=== PATIENT | male | born 1985 | race Caucasian/White ===

== ENCOUNTER 2024-12-29 03:19 | Emergency (ER) | payer MEDICAID ==
[~2024-12-29] VITALS: Ht 185.4 cm; Wt 99.8 kg
[2024-12-29 03:44] LABS: IMMATURE GRANULOCYTE ABSOLUTE 0.05 K/uL (0-1); NUCLEATED RED BLOOD CELLS 0.0 % (0.0-0.19); PLATELET COUNT (AUTO) 298 K/uL (130-400); RED BLOOD CELL COUNT(AUTO) 5.17 MIL/uL (4.50-6.20); RED CELL DISTRIBUTION WIDTH 12.9 % (11.0-15.5); WHITE BLOOD COUNT (AUTO) 9.0 K/uL (4.8-10.8)
[2024-12-29 03:58] LABS: CREATINE KINASE, TOTAL 219.0 U/L (21-232); CREATININE 0.9 mg/dL (0.5-1.3); GLOMERULAR FILTR. RATE CALC 113.0 mL/min (>90); GLUCOSE,RANDOM 109.0 mg/dL (70-105); SODIUM SERUM 139.0 mmol/L (136-145); UREA NITROGEN, BLOOD 22.0 mg/dL (7-18)
--- NOTE | 2024-12-29 04:14 | ERN ---
ED Note History of Present Illness Stated Complaint: CHEST PAIN Chief Complaint: Chest Pain Time Seen by MD: 03:22 Dictation: Narinder is a 39-year-old male who was diagnosed with schizophrenia and anxiety 16 years ago when he was born and raised in [place]. Eventually moved to [facility] and lived there however as it was extremely cold with snow he moved down to [place] and eventually landed in [place]. He stated that 2 weeks ago he was admitted to a mental health hospital and he was given Seroquel which really helped him with his insomnia however he did not get a prescription for it. Also gave him Vraylar and asked him to roll picker the prescription. He has been living in homeless shelters and stated that a few hours ago around 1:30 a.m. he began experiencing chest pain and had difficulty catching his breath. He stated that this has been off and on it would come and go as he described it. Patient received aspirin and nitro prior to coming to the ER by EMS He had a similar episode before when he was admitted as unstable angina and he also had a left heart catheterization done. He does not recall getting any stents placed. No diaphoresis presyncopal symptoms. He stated that he suffers from severe insomnia and can not sleep without any medications. Temperature 98 pulse 76 respirations 18 blood pressure 112/75 with a pulse oximetry of 97% on room air He has a known history of hypertension, angina, schizophrenia and anxiety Allergies: Coded Allergies: No Known Drug Allergies (Unverified Allergy, Unknown, 12/29/24) Past Medical History Past Medical History: Angina, Anxiety, Heart Disease, Hypertension, Schizophrenia Surgical History: None PSYCH History: anxiety, schizophrenia Social History: Smokers, ETOH RN Note Reviewed/Agreed w/PFSH: Yes Review of System Dictation Constitutional: Negative for fever,chills, and weight loss Eyes: Negative for injury, pain,redness, and discharge ENT: Negative for injury,pain or swelling Cardiovascular: Positive for chest pain, denied palpitations, and edema Respiratory: Negative for shortness of breath, cough, and wheezing, Abdomen/GI: Negative for abdominal pain, nausea, vomiting, diarrhea, and constipation Back: Negative for injury and pain : Negative for injury, bleeding and discharge MS/Extremity: Negative for injury and deformity Skin: Negative for rash, and discoloration Neuro: Negative for headache, weakness, numbness, tingling, and seizure Psych: Negative for suicide ideation, homicidal ideation, and hallucinations positive for severe insomnia Initial Vital Sign VS Vital Signs Date Time Temp Pulse Resp B/P (MAP) Pulse Ox O2 Delivery O2 Flow Rate FiO2 12/29/24 03:38 98.1 76 18 112/75 97 Room Air* 0 21 Physical Exam Dictation General: awake, alert, NAD obese male very pleasant and interactive Head/Face: Normocephalic, atraumatic Eyes: PERRL, EOMI, vision at baseline ENT: oral cavity clear, TMs clear, no signs of infection Neck: Trachea midline, supple, no nuchal rigidity Cardiovascular: RRR, normal S1/S2, No MRGs, no JVD, mild chest wall tenderness Respiratory: CTAB, no respiratory distress, No rales or wheezes Abdomen: Soft, non-tender, non-distended, normal bowel sounds, no guarding or rebound. Skin: Warm, dry, normal turgor, no rash MS/Extremity: Pulses equal, no cyanosis, neurovascular intact, FROM Neuro: COAx4, GCS 15, strength 5/5, CN 2-12 intact, normal cerebellar exam, normal gait, Psych: Normal behavior, mood, and affect normal Extremities-trace edema without any palpable cords, Homans sign is negative Results (Laboratory/Radiology) Laboratory/Radiology Laboratory Tests Test 12/29/24 03:36 12/29/24 04:30 White Blood Count 9.0 K/uL (4.8-10.8) Red Blood Count 5.17 MIL/uL (4.50-6.20) Hemoglobin 15.7 g/dL (14.0-18.0) Hematocrit 45.7 % (42-54) Mean Corpuscular Volume 88.4 fL (79-99) Mean Corpuscular Hemoglobin 30.4 pg (27.0-33.0) Mean Corpuscular Hemoglobin Concent 34.4 g/dL (32.0-36.0) Red Cell Distribution Width 12.9 % (11.0-15.5) Platelet Count 298 K/uL (130-400) Mean Platelet Volume 9.3 fL (7.5-10.5) Immature Granulocyte % (Auto) 0.6 % (0-1) Neutrophils (%) (Auto) 57.1 % (40.0-77.0) Lymphocytes (%) (Auto) 31.5 % (21.0-51.0) Monocytes (%) (Auto) 9.1 % (3.0-13.0) Eosinophils (%) (Auto) 1.3 % (0.0-8.0) Basophils (%) (Auto) 0.4 % (0.0-5.0) Neutrophils # (Auto) 5.1 K/uL (1.8-7.7) Lymphocytes # (Auto) 2.8 K/uL (1.0-4.8) Monocytes # (Auto) 0.8 K/uL (0.1-1.0) Eosinophils # (Auto) 0.12 K/uL (0.00-0.70) Basophils # (Auto) 0.04 K/uL (0.00-0.20) Absolute Immature Granulocyte (auto 0.05 K/uL (0-1) Nucleated Red Blood Cells 0.0 % (0.0-0.19) Sodium Level 139 mmol/L (136-145) Potassium Level 4.0 mmol/L (3.5-5.1) Chloride Level 105 mmol/L (101-111) Carbon Dioxide Level 26 mmol/L (21-32) Blood Urea Nitrogen 22 mg/dL (7-18) H Creatinine 0.9 mg/dL (0.5-1.3) Glomerular Filtration Rate Calc 113 mL/min (>90) Random Glucose 109 mg/dL (70-105) H Total Calcium 8.8 mg/dL (8.5-10.1) Total Creatine Kinase 219 U/L (21-232) Troponin I High Sensitivity 5 ng/L (4-75) Urine Color YELLOW (YELLOW) Urine Appearance CLEAR (CLEAR) Urine pH 5.5 (5.0-8.0) Urine Specific [place] 1.031 (1.001-1.031) Urine Protein 20 mg/dL (NEGATIVE) H Urine Glucose (UA) NEGATIVE mg/dL (NEGATIVE) Urine Ketones NEGATIVE mg/dL (NEGATIVE) Urine Occult Blood NEGATIVE (NEGATIVE) Urine Nitrate NEGATIVE (NEGATIVE) Urine Bilirubin NEGATIVE mg/dL (NEGATIVE) Urine Urobilinogen 0.2 mg/dL (0.2-1.0) Urine Leukocyte Esterase NEGATIVE Cade/uL Urine RBC 2-5 /HPF (0-1) H Urine WBC None /HPF (0-1) Urine Squamous Epithelial Cells RARE /HPF (0-2) Urine Bacteria None /HPF (None Seen) Urine Opiates Screen NEGATIVE (NEGATIVE) Urine Barbiturates Screen NEGATIVE (NEGATIVE) Urine Phencyclidine Screen NEGATIVE (NEGATIVE) Urine Amphetamines Screen NEGATIVE (NEGATIVE) Urine Benzodiazepines Screen NEGATIVE (NEGATIVE) Urine Cocaine Screen NEGATIVE (NEGATIVE) Urine Marijuana (THC) Screen NEGATIVE (NEGATIVE) Labs Reviewed?: Yes EKG Comment: Twelve lead EKG done on 12/29/2024 at 3:30 a.m. showed a heart rate of 68, [place] interval 130, QRS 96, QT/QTC 382/407 Impression normal sinus rhythm with no obvious acute ST-T elevations but probably screen repolarization changes noted EKG rhythm strip shows a normal sinus rhythm with no acute STT wave changes noted. Interpreted by ER MD Dr. Iyer ED Course ED Course Orders Procedure Category Date Status Time Vital Signs Per CPOE 12/29/24 Transmitted Routine 03:22 Chest 1vw RAD 12/29/24 Resulted 03:22 12 Lead Ekg Tracing- EKG 12/29/24 Complete Technical 03:22 Oxygen By Nc/Pulse Ox CPOE 12/29/24 Transmitted 03:22 Maintain Iv CPOE 12/29/24 Transmitted 03:22 Iv Insertion CPOE 12/29/24 Transmitted 03:22 Cardiac Monitoring CPOE 12/29/24 Transmitted 03:22 Pulse Oximetry With CPOE 12/29/24 Transmitted Vs And Prn 03:22 Cbc With Differential LAB 12/29/24 Complete 03:22 Activity: Br W/Brp CPOE 12/29/24 Transmitted With Assist 03:22 Creatine Kinase, Total LAB 12/29/24 Complete 03:22 Troponin I High LAB 12/29/24 Complete Sensitivity 03:22 Urinalysis Profile LAB 12/29/24 Complete 03:22 Basic Metabolic Panel LAB 12/29/24 Complete 03:22 Drug Screen Urine LAB 12/29/24 Complete 03:22 Ketorolac PHA 12/29/24 Complete Tromethamine 30mg/Ml 04:30 Current Medications Medications (Trade) Dose Ordered Sig/Augie Route PRN Reason Start Time Stop Time Status Last Admin Dose Admin Ketorolac Tromethamine (toRADol) 30 mg ONCE ONCE IVP 12/29/24 04:30 12/29/24 04:31 DC 12/29/24 04:36 Vital Signs Date Time Temp Pulse Resp B/P (MAP) Pulse Ox O2 Delivery O2 Flow Rate FiO2 12/29/24 04:48 98.1 70 18 99/47 97 Room Air* 0 21 12/29/24 03:38 98.1 76 18 112/75 97 Room Air* 0 21 We will perform diagnostic labs, advanced imaging and administer medications according to the patient's complaint. Once the results are available, will review and personally interpreted the labs to rule out any acute life- threatening emergency the trach require immediate intervention and treatment. I will then re-evaluate the patient after treatment and diagnostic exams have return to determine whether the patient requires any further testing, can safely be discharged home or need further admission to hospital for additional treatment and evaluation. HEART Score Response (Comments) Value History: Low suspicion (0) 0 EKG: Normal 0 Age: < 45yrs (0) 0 Risk Factors: 1-2 risk factors (+1) 1 Initial Troponin: Normal limit (0) 0 HEART Score Risk: Low Risk for MACE (1-3) Total 1 Medical Decision Making MDM Differential diagnosis: Esophagitis, gastroesophageal reflux disease, hiatal hernia, gastritis, pericarditis, costochondritis, pleurisy, angina, chest wall pain Narinder is a 39-year-old male who was diagnosed with schizophrenia and anxiety 16 years ago when he was born and raised in [place]. Eventually moved to [place] and lived there however as it was extremely cold with snow he moved down to [place] and eventually landed in [place]. He stated that 2 weeks ago he was admitted to a mental health hospital and he was given Seroquel which really helped him with his insomnia however he did not get a prescription for it. Also gave him Vraylar and asked him to roll picker the prescription. He has been living in homeless shelters and stated that a few hours ago around 1:30 a.m. he began experiencing chest pain and had difficulty catching his breath. He stated that this has been off and on it would come and go as he described it. Patient received aspirin and nitro prior to coming to the ER by EMS He had a similar episode before when he was admitted as unstable angina and he also had a left heart catheterization done. He does not recall getting any stents placed. No diaphoresis presyncopal symptoms. He stated that he suffers from severe insomnia and can not sleep without any medications. Temperature 98 pulse 76 respirations 18 blood pressure 112/75 with a pulse oximetry of 97% on room air He has a known history of hypertension, angina, schizophrenia and anxiety 4:00 a.m. labs reviewed CBC is with a normal limits BNP 7 shows a BUN and creatinine of 22 and 0.9 1st set of troponin is negative. Chest x-ray is unremarkable for any acute infiltrate or pneumothorax I have updated the patient on all the lab tests chest x-ray findings and he has responded to Toradol. Patient has serious barriers for any health care as patient is homeless and has no transportation and has no funding Rationale: Tests considered and ordered secondary to shared decision making include: Previous outside records reviewed: Old ER visits. Risk of complication and/or morbidity or mortality of patient management: None Medications-Per medication reconciliation Need for hospitalization: Patient does not meet criteria for hospitalization. Need for emergency major/minor surgery: No There are social concerns with this patient.- Patient is homeless Prescription drug management Prescriptions will include symptomatic care Patient's prior external medical records from other ER visits were reviewed by me as indicated. Prior testing and results from previous visits were reviewed. Prior tests were taken into account with medical decision making and resource utilization, independent historian/historians were used to obtain complete medical history. I independently interpreted the test that were performed, results were reviewed by me and considered findings on radiology if ordered. Medical management and examination interpretation discussions were had by me with other qualified healthcare professionals as indicated for the patient's care. Problem List Problem List: (1) Chest wall pain (2) Schizophrenia (3) Chronic insomnia DX & DISP Disposition: Discharge Departure Impression: Primary Impression: Chest wall pain Additional Impressions: Schizophrenia, Chronic insomnia Condition: Stable Scripts Quetiapine Fumarate (Seroquel) 50 Mg Tablet 1 TAB PO HS for 30 Days, #30 TAB 0 Refills Prov: VLAD IYER MD 12/29/24 Additional Instructions: Patient and the caregiver have been informed of all the diagnostic tests and the imaging conducted during the today's visit to the emergency room and has verbalized understanding of the results I have personally reviewed and interpreted all diagnostic exams performed here in the ER today as well as the vital signs documented by the nursing staff. The patient is now being discharged to home and should follow up with the primary care physician or the specialist as directed by the ER staff. Unfortunately patient is unable to feel any prescription as he is homeless and lives in a [place] [facility] with no transportation. Patient stated that Seroquel works very well. VLAD IYER MD Dec 29, 2024 04:14
[2024-12-29 04:40] LABS: APPEARANCE,URINE CLEAR (CLEAR); GLUCOSE, URINE (UA) NEGATIVE (NEGATIVE); LEUKOCYTE ESTERASE ,URINE NEGATIVE Leu/uL (NEGATIVE); NITRATE,URINE NEGATIVE (NEGATIVE); OCCULT BLOOD,URINE NEGATIVE (NEGATIVE)
[2024-12-29 04:42] LABS: ADD UA MICROSCOPIC YES
[2024-12-29 04:46] LABS: SQUAMOUS EPITHELIAL CELL,UR RARE /HPF (0-2)
[2024-12-29 04:47] LABS: AMPHET/METH SCREEN,URINE NEGATIVE (NEGATIVE); BARBITURATE SCREEN, URINE NEGATIVE (NEGATIVE); CANNABINOID SCREEN,URINE NEGATIVE (NEGATIVE); COCAINE SCREEN,URINE NEGATIVE (NEGATIVE)
[2024-12-29 04:48] VITALS: TEMP 98
--- NOTE | 2024-12-29 04:49 | HMCIMG ---
EXAM: CR Chest, 1 view. CLINICAL HISTORY: Chest pain. COMPARISON: None provided. FINDINGS: The lungs show no infiltration or other acute findings. No pleural effusion or pneumothorax. The cardio mediastinal silhouette is within normal limits. No acute osseous abnormality. IMPRESSION: No acute cardiopulmonary pathology is evident. /Wolbach
--- NOTE | 2024-12-29 05:58 | EKG ---
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
[2024-12-29] MEDS ORDERED: QUET50TA PO (06:05)
[2024-12-29 06:15] VITALS: BP 108/51; PULSE 66; RESP 18; O2SAT 97
--- NOTE | 2024-12-29 06:34 | NUR ---
TOBACCO STRIPPER MADE AWARE THAT PT WOULD LIKE A RIDE TO [employer] [facility] DETENTION. PT WILL WAIT IN THE LOBBY FOR LYFT/TAXI
== END 2024-12-29 06:37 | disposition home or self-care (01) ==
LOC: EDH 03:19
DX: R07.89 Other chest pain (principal); F20.9 Schizophrenia, unspecified; F51.04 Psychophysiologic insomnia; F17.200 Nicotine dependence, unspecified, uncomplicated; I11.9 Hypertensive heart disease without heart failure; Z79.899 Other long term (current) drug therapy
CPT/HCPCS: 99285; 96374; 71045; 82550; 84484; 80048; 80305; 85025; 36415; 93005; 81001; J1885